=== PATIENT | female | born 1950 | race African-American/Black ===

== ENCOUNTER 2016-06-27 16:53 | Emergency (ER) | payer OTHER ==
[~2016-06-27] VITALS: Ht 157.5 cm; Wt 90.7 kg
[2016-06-27 16:54] VITALS: BP 166/81
[2016-06-27] MEDS ORDERED: METFORMIN HCL500 MG PO (16:57)
[2016-06-27] MEDS ORDERED: VITAMIN D2000 UNIT PO (16:58)
[2016-06-27] MEDS ORDERED: CRESTOR10 MG PO (16:58)
[2016-06-27] MEDS ORDERED: CALCIUM 600 +1 EAC1 PO (16:58)
[2016-06-27] MEDS ORDERED: FEROCON CAPSUL1 EACH PO (16:58)
[2016-06-27] MEDS ORDERED: MAXZIDE 75-501 EACH PO (17:00)
[2016-06-27] MEDS ORDERED: BIOTIN5 MG PO (17:00)
[2016-06-27] MEDS ORDERED: VENLAFAXIN75 MG/1 T2 PO (17:00)
[2016-06-27] MEDS ORDERED: LUTEIN40 MG PO (17:01)
== END 2016-06-27 18:00 | disposition home or self-care (01) ==
LOC: ER 16:53
DX: S61.011A Laceration without foreign body of right thumb without damage to nail, initial encounter (principal); I10 Essential (primary) hypertension; E11.9 Type 2 diabetes mellitus without complications; Z98.84 Bariatric surgery status; Z90.49 Acquired absence of other specified parts of digestive tract; Z88.2 Allergy status to sulfonamides; W45.8XXA Other foreign body or object entering through skin, initial encounter; Y93.89 Activity, other specified; Y92.89 Other specified places as the place of occurrence of the external cause; Y99.9 Unspecified external cause status